=== PATIENT | male | born 1985 | race African-American/Black ===

== ENCOUNTER 2023-08-04 18:04 | Emergency (ER) | payer BC ==
[~2023-08-04] VITALS: Ht 188 cm; Wt 109.1 kg
[2023-08-04] MEDS ORDERED: NORV5TAB PO (18:15)
[2023-08-04 19:04] VITALS: BP 175/104
[2023-08-04] MEDS: amLODIPine 5 MG TAB PO ONE (19:04)
[2023-08-04 19:21] LABS: BASO % 0.2 % (0.0-1.0); EOS # 0.2 10^3/uL (0.0-0.5); EOS % 3.9 % (0.0-3.0); HEMATOCRIT 43.2 % (42.0-52.0); HEMOGLOBIN 13.3 g/dl (13.5-17.5); LYMPH # 1.3 10^3/uL (1.5-5.0); LYMPH % 22.9 % (24.0-44.0); MEAN CORPUSCULAR HEMOGLOBIN 23.1 pg (27.0-33.0); MEAN CORPUSCULAR HGB CONC 30.8 g/dl (32.0-36.5); MEAN CORPUSCULAR VOLUME 74.9 fl (80.0-96.0); MONO # 0.5 10^3/uL (0.0-0.8); MONO % 9.1 % (2.0-8.0); NEUTROPHILS # 3.6 10^3/uL (1.5-8.5); NEUTROPHILS % 63.7 % (36.0-66.0); PLATELET COUNT, AUTOMATED 251 10^3/uL (150-450); RED BLOOD COUNT 5.77 10^6/uL (4.30-6.10); WHITE BLOOD COUNT 5.6 10^3/uL (4.0-10.0)
[2023-08-04] MEDS: ASPIRIN 81MG CHEW TABLET PO ONE (19:37)
[2023-08-04 19:38] LABS: D-DIMER QUANT 0.33 ug/mL (<0.5); INR 0.96; PARTIAL THROMBOPLASTIN TIME 27.4 SECONDS (24.8-34.2); PROTHROMBIN TIME 12.5 SECONDS (12.5-14.5)
[2023-08-04 19:57] LABS: ALBUMIN 4.1 G/DL (3.2-5.2); ALKALINE PHOSPHATASE 50 U/L (46-116); ALT/SGPT 46 U/L (7.0-40); AST/SGOT 32 U/L (<34); BILIRUBIN,DIRECT < 0.1 MG/DL (<0.4); BILIRUBIN,TOTAL 0.3 MG/DL (0.3-1.2); BLOOD UREA NITROGEN 15 MG/DL (9-23); CALCIUM LEVEL 9.3 MG/DL (8.5-10.1); CARBON DIOXIDE LEVEL 27 MMOL/L (20-31); CHLORIDE LEVEL 107 MMOL/L (98-107); CK-MB VALUE MASS 2.7 NG/ML (<3.6); CREATININE FOR GFR 0.91 MG/DL (0.70-1.30); GLOMERULAR FILTRATION RATE > 60.0 (>60); GLUCOSE, FASTING 91 MG/DL (60-100); POTASSIUM SERUM 4.3 MMOL/L (3.5-5.1); SODIUM LEVEL 140 MMOL/L (136-145); TOTAL PROTEIN 7.4 G/DL (5.7-8.2)
[2023-08-04 19:58] LABS: FREE T4 1.02 NG/DL (0.89-1.76)
[2023-08-04 19:59] LABS: THYROID STIMULATING HORMONE 1.667 uIU/ML (0.55-4.78)
[2023-08-04] MEDS ORDERED: hydrALAZINE 20MG/ML 1ML VIAL IV ONE (20:00)
[2023-08-04 20:01] LABS: CPK CREATINE PHOSPHOKINASE 562 U/L (46-171); MB/CK RELATIVE INDEX 0.48 (< OR =4)
[2023-08-04 20:26] VITALS: TEMP 98
[2023-08-04 21:06] LABS: MB/CK RELATIVE INDEX 0.42 (< OR =4)
[2023-08-04 21:30] VITALS: BP 153/78; O2SAT 99
[2023-08-04] MEDS ORDERED: AMLO10TA PO (22:02)
[2023-08-04] MEDS ORDERED: ASPI81TA26 PO (22:02)
== END 2023-08-04 22:13 | disposition home or self-care (01) ==
LOC: M ED 18:04 → EDBD 18:04 → M ED 22:13
DX: I16.0 Hypertensive urgency (principal); G45.9 Transient cerebral ischemic attack, unspecified; F10.10 Alcohol abuse, uncomplicated; Z79.899 Other long term (current) drug therapy; Z79.82 Long term (current) use of aspirin